=== PATIENT | male | born 1995 | race African-American/Black ===

== ENCOUNTER 2017-02-15 00:22 | Emergency (ER) | payer SELFPAY ==
[~2017-02-15] VITALS: Ht 182.9 cm; Wt 73.0 kg
[2017-02-15 00:26] VITALS: BP 132/84
== END 2017-02-15 02:10 | disposition home or self-care (01) ==
LOC: ER 00:22
DX: J02.9 Acute pharyngitis, unspecified (principal)
CPT/HCPCS: 71010; 99283; Z7610